=== PATIENT | female | born 1960 | race Caucasian/White ===

== ENCOUNTER → 2021-02-09 | Outpatient (CLI) | payer OTHER ==
[~2021-02-09] MED LIST: ALPRAZOLAM0.5 MG PO; AMOX TR-K CLV1 EAC4 PO; CARDIZEM CD360 MG PO; CORDARONE 200M200 MG PO; COUMADIN3 MG PO; COUMADIN5 MG PO; DIGITEK125 MCG PO; DILTIAZEM 24HR180 M1 PO; FLAGYL 250 MG250 MG PO; GLUCOPHAGE500 MG PO; GLUCOTROL XL 5 M5 MG PO; HYDROCHLOROTHIA25 MG PO; K-DUR TAB 20 M20 MEQ PO; LASIX20 MG PO; LOPRESSOR 50 MG50 MG PO; LOPRESSOR50 MG PO; LORTAB 5-325 M1 EACH PO; OMEGA 3 FISH O1 EACH PO; OMEGA 3-6-9 CO400 MG PO; PRAVACHOL40 MG PO; PRINIVIL20 MG PO; TIKOSYN500 MCG PO; TRULICITY1.5 MG/0.5 SQ; VITAMIN D-32000 UNI1 PO; XULTOPHY SQ; ZYRTEC10 M3 PO
== END ==
LOC: RT 10:15
DX: I48.19 Other persistent atrial fibrillation (principal); R94.31 Abnormal electrocardiogram [ECG] [EKG]
CPT/HCPCS: 93005

== ENCOUNTER → 2021-02-13 | Outpatient (CLI) | payer OTHER | LOC: RT 13:06 | DX: I48.19 Other persistent atrial fibrillation (principal) | CPT/HCPCS: 93005 ==